=== PATIENT | male | born 2000 | race Caucasian/White ===

== ENCOUNTER 2020-05-27 08:28 | Day surgery (SDC) | payer OTHER ==
[2020-05-24 18:34] VITALS: BMI 20.7
[2020-05-27] MEDS ORDERED: MIDAZOLAM HCL 2 MG/2 ML SINGLE DOSE VIAL ONE ×2 (10:14→10:32)
[2020-05-27] MEDS ORDERED: DEXAMETHASONE SOD PHOSPHATE 4 MG/1 ML VIAL ONE (10:18)
[2020-05-27] MEDS ORDERED: KETOROLAC TROMETHAMINE 30 MG/1 ML VIAL ONE (10:18)
[2020-05-27] MEDS ORDERED: LIDOCAINE HCL/PF 2% SDV 5ML VIAL ONE (10:18)
[2020-05-27] MEDS ORDERED: ONDANSETRON 4 MG/2 ML VIAL ONE (10:18)
[2020-05-27] MEDS ORDERED: PROPOFOL 20 ML ONE ×2 (10:18→10:19)
[2020-05-27] MEDS ORDERED: ceFAZolin SODIUM 1 GM VIAL ONE ×2 (10:22→11:58)
[2020-05-27] MEDS ORDERED: DEXAMETHASONE SOD PHOSPHATE/PF 10 MG/ML SDV ONE (10:32)
[2020-05-27] MEDS ORDERED: ROPIVACAINE HCL 0.5% 30ML VIAL ONE (10:32)
[2020-05-27] MEDS ORDERED: EPINEPHrine 1:1,000 1 MG/1 ML - 30ML VIAL (INJECTION) ONE (10:49)
[2020-05-27] MEDS ORDERED: ONDANSETRON 4 MG/2 ML VIAL IVPUSH PRN (12:48)
[2020-05-27] MEDS ORDERED: oxyCODONE HCL 5 MG TABLET PO PRN (12:48)
[2020-05-27] MEDS ORDERED: LACTATED RINGERS SOLUTION 1,000 ML IV SCH (13:00)
[2020-05-27 15:33] VITALS: TEMP 98.5
[2020-05-27 16:11] VITALS: BP 130/85; PULSE 115
== END 2020-05-27 16:11 | disposition home or self-care (01) ==
LOC: FASU 08:28
PROVIDERS: ATTEND Orthopaedic Surgery Sports Medicine
PROC: 0RQJ4ZZ Repair Right Shoulder Joint, Percutaneous Endoscopic Approach (ICD-10-PCS; principal; 2020-05-27 12:05)
DX: M25.311 Other instability, right shoulder (principal); S42.291A Other displaced fracture of upper end of right humerus, initial encounter for closed fracture; X58.XXXA Exposure to other specified factors, initial encounter; Y93.9 Activity, unspecified; Y92.9 Unspecified place or not applicable
CPT/HCPCS: 94760